=== PATIENT | female | born 1960 | race Caucasian/White ===

== ENCOUNTER 2018-01-22 09:19 | Day surgery (SDC) | payer MEDICARE ==
[2015-06-09 11:44] VITALS: BMI 38.9
[2018-01-22] MEDS ORDERED: Ciprofloxacin 400mg/200ml D5W 400 MG/200 ML BAG IVPB ONE (11:22)
[2018-01-22] MEDS ORDERED: Iohexol 240 (50 ml) ONE (11:22)
[2018-01-22] MEDS ORDERED: Lidocaine 2% Jelly (Uro-Jet) ONE (11:22)
[2018-01-22] MEDS ORDERED: Propofol 10 mg/ml Inj (20 ML) ONE ×2 (11:28→11:52)
--- NOTE | 2018-01-22 12:10 | PCM.SURG1 ---
Surgeon's Initial Post Op Note - Surgeon's Notes Surgeon: darío Asset Recovery Specialist: none Type of Anesthesia: IV Sedation Anesthesia Administered By: Pre-Operative Diagnosis: microscopic hematuria.uti. Operative Findings: meatal stenosis.cystitis.filling defect right renal pelvis. Post-Operative Diagnosis: meatal stenosis.cystitis.filling defect right renal pelvis. Operation Performed: cystoscopy bilateral retrograde urethral dilatation. Specimen/Specimens Removed: urine c/s. Estimated Blood Loss: EBL {In ML}: 0 Blood Products Given: N/A Drains Used: No Drains Post-Op Condition: Good Date of Surgery/Procedure: 01/22/18 Time of Surgery/Procedure: 12:14
[2018-01-22] MEDS ORDERED: Lactated Ringer's 1,000 ML IV SCH (12:15)
[2018-01-22 13:50] VITALS: BP 131/56; PULSE 80; RESP 18; TEMP 97.6; O2SAT 97
--- NOTE | 2018-01-22 16:36 | RAD ---
Date of service: 01/22/2018 HISTORY: MICROOSCOPIC HEMATURIA COMPARISON: No prior. FINDINGS: BOWEL: Normal. No obstruction. No free air. BONES: Normal. OTHER FINDINGS: Filling defect identified in the right collecting system measuring 8 mm. This conforms to the calcification identified on the customer operations specialist view. Contrast identified in the left ureter and collecting system. Extravasation into the venous plexus also identified. IMPRESSION: Filling defect in the right renal pelvis.
--- NOTE | 2018-01-22 17:10 | RAD ---
Date of service: 01/22/2018 PROCEDURE: Intraoperative Fluoroscopy. HISTORY: MICROOSCOPIC HEMATURIA FINDINGS: Fluoroscopic assistance was provided for cystogram and bilateral retrograde study. Please refer to the operative report from JASPER Love. Total fluoroscopic time (continuous mode) utilized during the procedure 2.8 (seconds). Dose report: DLP 1.60 (mGy/m2)
--- NOTE | 2018-01-23 06:00 | OP ---
PROCEDURE DATE: 01/22/2018 SURGICAL PROCEDURE PREOPERATIVE DIAGNOSES: Microscopic hematuria, urinary tract infection. POSTOPERATIVE DIAGNOSES: Meatal stenosis, cystitis, filling defects, right renal pelvis. OPERATION: Cystoscopy, bilateral retrograde pyelogram, urethral dilatation, #28-Turk[place]. SURGEON: Carter Cuadra MD FINDINGS: Good bladder capacity. No tumors or stones were observed during emptying or filling of the bladder. Inflammation of the bladder urothelium noted. Ureteral orifices normally placed and in configuration. Meatal stenosis noted. Bladder neck normal. TECHNIQUE: This patient was placed in lithotomy position. The external genitalia were prepped and draped in the usual sterile fashion. A #22 panendoscope was introduced in the bladder under direct vision. Findings as above. Then, using a #8 cone tip ureteral catheter which was placed in the intramural portion of the right lower ureter, 8 mL of dye was injected into the right renal unit. X-rays were taken which showed no evidence of obstruction or space occupying lesion, but about 6 to 7-mm filling defects on the right renal pelvis. Also retrograde pyelogram was performed on the left side in the same manner, normal findings. The urethra was dilated to #28 [place] sounds. The procedure was terminated. The patient returned to the recovery room in satisfactory condition. Carter Cuadra MD
== END 2018-01-22 14:14 | disposition home or self-care (01) ==
LOC: C.SDS 09:19
PROVIDERS: ATTEND Urology
DX: N30.91 Cystitis, unspecified with hematuria (principal); N35.92 Unspecified urethral stricture, female; R93.41 Abnormal radiologic findings on diagnostic imaging of renal pelvis, ureter, or bladder; E11.9 Type 2 diabetes mellitus without complications; I10 Essential (primary) hypertension; F41.9 Anxiety disorder, unspecified; F31.9 Bipolar disorder, unspecified; Z79.84 Long term (current) use of oral hypoglycemic drugs; Z79.899 Other long term (current) drug therapy; Z88.8 Allergy status to other drugs, medicaments and biological substances